=== PATIENT | male | born 1985 | race Two or more races ===

== ENCOUNTER 2020-01-07 18:34 | Emergency (ER) | payer OTHER ==
[~2020-01-07] VITALS: Ht 177.8 cm; Wt 97.7 kg
[2020-01-07 18:43] VITALS: BP 144/88
== END 2020-01-07 19:26 | disposition home or self-care (01) ==
LOC: EMS 18:34
DX: Z20.828 Contact with and (suspected) exposure to other viral communicable diseases (principal); Z53.21 Procedure and treatment not carried out due to patient leaving prior to being seen by health care provider